=== PATIENT | male | born 1980 | race Caucasian/White ===

== ENCOUNTER 2018-07-08 01:25 | Emergency (ER) | payer SELFPAY | END 2018-07-08 01:35 | disposition left against medical advice (07) | LOC: CC.ED 01:25 | DX: Z53.21 Procedure and treatment not carried out due to patient leaving prior to being seen by health care provider (principal) ==

== ENCOUNTER 2018-07-08 03:20 | Emergency (ER) | payer BC ==
[2018-07-08] MEDS ORDERED: Iopamidol 755 Mg/ML 200 ML Bottle IV ONE (06:37)
[2018-07-08 06:47] LABS: CHLORIDE,CL 101 mEq/L (98-106); SODIUM,NA 139 mEq/L (136-145)
[2018-07-08] MEDS ORDERED: fentaNYL 100 MCG/2 ML SDV ONE (07:15)
[2018-07-08] MEDS ORDERED: Sodium Chloride 0.9% 1,000 ML ONE (07:15)
--- NOTE | 2018-07-28 20:32 | ER ---
CHIEF COMPLAINT: Abdominal pain. HISTORY OF PRESENT ILLNESS: John is a 38-year-old male who presents to the ER via private vehicle with concerns of abdominal pain with bright red blood per rectum for the last week or so. It has progressively got worse over the last couple of days. States the abdominal pain started only 2 nights ago. States that he has not had any abdominal surgeries. Denies any gallbladder or appendix surgeries. He states that he is overall quite healthy. He has had a little bit of nausea and a feeling of vomiting with it as well. Does state that he does have picture of the blood in the stool. States there are a lot of clots with it as well. Does not have any history hemorrhoids. CURRENT MEDICATIONS: None. ALLERGIES: NO KNOWN DRUG ALLERGIES. PAST MEDICAL HISTORY: Unremarkable. PAST SURGICAL HISTORY: He had a lipoma to the right chest wall removed. FAMILY HISTORY: Noncontributory. REVIEW OF SYSTEMS: He denies any headaches. No fevers. No chills. No shortness of breath. No chest pain or palpitations in his chest. Significant for abdominal cramping, diarrhea, hematochezia. No urinary complaints. PHYSICAL EXAMINATION: VITAL SIGNS: Blood pressure 135/92, temperature 97.2, pulse 54, respirations 18, weight of 230 pounds, height of 72 inches. GENERAL: A cooperative male. He does appear to be in some discomfort presently. However, he is answering all questions appropriately. HEENT: Grossly unremarkable. LUNGS: Clear to auscultation. He does not have any adventitious sounds. Respirations are equal and nonlabored. CARDIAC: Regular rate and rhythm. No murmurs, gallops, or rubs are noted. ABDOMEN: Soft. He does have some tenderness in the right and left lower quadrants with palpation. Negative Rovsing sign. No CVA tenderness is noted. No hepato or splenomegaly. SKIN: Uniformly pink, warm, and dry. RECTAL: Occult blood screen was positive. No hemorrhoids or masses noted within the rectal vault. ASSESSMENT: 1. ABDOMINAL PAIN. 2. BRIGHT RED BLOOD PER RECTUM. PLAN: We did proceed with a CT scan of the abdomen and pelvis which is grossly unremarkable. Did not show any signs of any bowel abnormality to account for any GI bleeding. There was a 23 mm diameter lesion in the right lobe in the liver, which they thought was secondary to hemangioma. CBC was unremarkable. CMP was unremarkable. CRP was less than 0.2. Urinalysis was negative besides trace of occult blood. We did keep the patient in extended ER for IV pain control. The pain in the early afternoon had mostly subsided. The patient was ready to be discharged at that point in time. I did discuss setting him up with colonoscopy, which we will have done this Friday. Hemoglobin was 14.6 as well. No further episodes of diarrhea during the time in the emergency room. Again, if he starts to have any concerns or questions, he is to follow up sooner. MUSHTAQ/GENARO /[id number]
== END 2018-07-08 12:05 | disposition home or self-care (01) ==
LOC: CC.ED 06:36
DX: K62.5 Hemorrhage of anus and rectum (principal)
CPT/HCPCS: 36415; 74177; 80048; 81001; 83605; 83735; 85025; 86140; 96361; 96365; 96366; 96374; 96375; 96376; 99284-25; Q9967

== ENCOUNTER → 2018-07-17 | Day surgery (SDC) | payer BC ==
[~2018-07-17] MED LIST: Lactated Ringers 1,000 ML IV SCH; Propofol 200 MG/20 ML SDV IV ONE
--- NOTE | 2018-07-20 09:14 | OR ---
DATE OF OPERATION: 07/17/2018 PREOPERATIVE DIAGNOSIS: HEMATOCHEZIA. POSTOPERATIVE DIAGNOSIS: HEMATOCHEZIA. SURGEON: Darshan Leblanc MD PROCEDURE: FULL-LENGTH COLONOSCOPY WITH RANDOM BIOPSIES X5. ANESTHESIA: MAC via [facility] [employer]. COMPLICATIONS: None. SPECIMEN: Random colon biopsies from cecum to rectosigmoid junction, x5. FINDINGS: 1. Normal full length colonoscopy. 2. No etiology for the patient's hematochezia which now has resolved. RECOMMENDATIONS: Follow up pending path reports. INDICATIONS: The patient apparently had about a 2-week history of hematochezia with some abdominal cramps and pain. He was evaluated in an emergency room where CT scans and labs were normal. Because he was continuing to have some occasional blood, he was sent for diagnostic colonoscopy. DESCRIPTION OF PROCEDURE: The patient was prepped and draped, placed in the left lateral decubitus position. A lubricated Olympus colonoscope was inserted and easily advanced to the cecum. We were able to directly visualize the ileocecal valve and appendiceal orifice. The bowel prep was excellent. I did also intubate into the terminal ileum briefly which was grossly benign. Throughout the length of the colon, upon withdrawal, there were no signs of any polyps, masses, ulceration, or bleeding sites. No vascular abnormalities or signs of colitis. No diverticula. I did do random biopsies from the right colon to the rectosigmoid junction, numbering 5. The rectal vault itself was benign. Retroflexion showed really no perianal lesions or signs of hemorrhoidal disease. Air was suctioned from the colon and the scope removed without complication. The patient was stable in the recovery room. CARLOS/GENARO /[id number]
== END ==
LOC: CC.SDS 12:35
PROVIDERS: ATTEND Family Medicine
DX: K92.1 Melena (principal); D68.59 Other primary thrombophilia; Z98.890 Other specified postprocedural states
CPT/HCPCS: J2704; J7120